=== PATIENT | female | born 1985 | race Caucasian/White ===

== ENCOUNTER 2022-09-29 13:15 | Outpatient (CLI) | payer OTHER, SELFPAY | END 2022-09-29 13:16 | disposition home or self-care (01) | PROVIDERS: Visit Provider Emergency Medicine | DX: Z00.00 Encounter for general adult medical examination without abnormal findings (principal); Z13.6 Encounter for screening for cardiovascular disorders; Z13.1 Encounter for screening for diabetes mellitus | CPT/HCPCS: 80061; 82728; 82947 ==

== ENCOUNTER 2022-10-28 14:14 | Outpatient (CLI) | payer OTHER, SELFPAY | END 2022-10-28 14:15 | disposition home or self-care (01) | LOC: NFLDREF 14:14 | PROVIDERS: Visit Provider Obstetrics & Gynecology | DX: E78.1 Pure hyperglyceridemia (principal); D64.9 Anemia, unspecified | CPT/HCPCS: 84443 ==

== ENCOUNTER 2022-11-14 14:55 | Outpatient (CLI) | payer OTHER, SELFPAY ==
--- NOTE | 2022-11-14 15:00 | CRLHL7_ITS ---
For Patients: As a result of the Century Cures Act, medical imaging exams and procedure reports are released immediately into your electronic medical record. You may view this report before your referring provider. If you have questions, please contact your health care provider. INDICATION: 37 year-old female. Menorrhagia. TECHNIQUE: Transabdominal and transvaginal pelvic ultrasound. FINDINGS: The uterus measures 9.5 x 4.7 x 5.8 cm. The endometrial stripe measures 15 mm transvaginally. This is thickened and heterogeneous in appearance even in a premenopausal female. The right ovary measures 3.9 x 1.7 x 2.7 cm. The left ovary measures 2.7 x 1.6 x 2.0 cm. Blood flow is identified in the ovaries. Minimal free pelvic fluid likely physiologic. IMPRESSION: 1. Thickened somewhat heterogeneous endometrial stripe measuring up to 15 mm. 2. Small cervical nabothian cysts. 3. Minimal free pelvic fluid likely physiologic. 4. Normal-sized ovaries without torsion or mass. Dictated by Fidencio Vitale MD @ 11/14/2022 3:48:26 PM (Electronically Signed)
== END 2022-11-14 14:56 | disposition home or self-care (01) ==
LOC: US 14:56
PROVIDERS: Visit Provider Obstetrics & Gynecology
DX: N92.1 Excessive and frequent menstruation with irregular cycle (principal); R93.89 Abnormal findings on diagnostic imaging of other specified body structures; N88.8 Other specified noninflammatory disorders of cervix uteri
CPT/HCPCS: 76830; 76856

== ENCOUNTER 2023-10-10 15:33 | Outpatient (CLI) | payer OTHER, SELFPAY ==
--- OUTSIDE RECORDS SUMMARY | 2023-10-10 15:36 | XMS_ITS | Referral Summary ---
Author Organization [place] Address [address] [place] [address] Care Team Providers Care Clinic Lpn Name Role Phone Yuko Peters PA-C Unavailable Margaret Hamm Primary Care Provider Yuko Peters PA-C Unavailable Allergies Active Allergy Reactions Criticality Noted Date Comments No Known Drug Allergy 10/22/2003 Seasonal Allergies 04/01/2009 Pollen and hay Medications Medication Sig Dispensed Refills Start Date End Date Status BENADRYL ALLERGY 12.5 MG OR CHEW 1 tab qd prn 10/22/2003 Active AD OR None Entered Active clomiPHENE (CLOMID) 50 MG tabletIndications:F emale infertility Take 3 tablets (150 mg) by mouth daily 15 tablet 3 12/18/2015 Active Additional Information Patient not taking.Reported on 01/13/2023 DEXAMETHASONE PO Active Active Problems Problem Noted Date Diagnosed Date Female infertility 01/12/2015 GBS (group B Streptococcus c arrier), +RV culture, currently 02/04/2014 Encounter for supervision of other normal pregna ncy 01/14/2014 Overview: Boy Diagnosis updated by automated process. Provider to review and confirm. Mild hyperemesis gravidarum, antepartum 01/19/20 11 CARDIOVASCULAR SCREENING; LDL GOAL LESS THAN 160 02/21/2010 Resolved Problems Problem Noted Date Diagnosed Date Resolved Date Mixed incontinence 01/31/2023 3 GBS (group B Streptococcus c arrier), +RV culture, currently 08/02/2011 02/04/2014 Overview: Intrapartum antibiotics. Supervision of normal first 01/18/2011 02/17/2014 Overview: Boy History of miscarriage 07/06/201002/17 Immunizations Name Administration Dates Next Due HEPA 12/13/2004,01/15/2004 HepB 03/17/2000,10/29/1999,09/23/1999 Influenza (IIV3) PF 01/18/2011 MMR 09/23/1999 TD,PF 7+ (Tenivac) 09/23/1999 TDAP Vaccine (Adacel) 04/01/2009 Typhoid IM 01/15/2004 Social History Tobacco Use Types Packs/Day Years Used Date Smoking Tobacco: Never Smokeless Tobacco: Never Alcohol Use Standard Drinks/Week Comments No 0 (1 standard drink = 0.6 oz pur e alcohol) Adolescent Education Answer Date Record ed Getting School Help Needed Not on file 01/14 Sex and Gender Information Value Date Recorded Sex Assigned at Not on file Gender Identity Not on file Sexual Orientation Not on file Last Filed Vital Signs Vital Sign Reading Time Taken Comments Blood Pressure 112/76 01/13/2023 2:10 PM CDT Pulse 83 09/22/2016 8:55 PM CDT Temperature 36.2 ??C (97.1 ??F) 09/22/2016 8:55 PM CD T Respiratory Rate 20 09/22/2016 8:55 PM CDT Oxygen Saturation 100% 09/22/2016 8:55 PM CDT Inhaled Oxygen Concentration - - Weight 65.8 kg (145 lb) 01/13/2023 2:10 PM CDT Height 160 cm (5' 3) 01/13/2023 2:10 PM CDT Body Mass Index 25.69 01/13/2023 2:10 PM CDT Plan of Treatment Not on file Procedures Procedure Name Priority Date/Time Associated Diagnosis Comments COMPREHENSIVE METABOLIC PANEL Routine 09/07/2015 1:24 PM CDT Encounter for gynecological examination with abnormal finding Female infertility HIV ANTIGEN ANTIBODY COMBO Routine 09/03/2013 4:33 PM CDT Supervision of other normal , first trimester PAP IMAGED THIN LAYER SCREEN Routine 09/03/2013 12:00 AM CDT Supervision of other normal , first trimester from Last 3 Months or Most Recently Relevant to Health Maintenance Results * Comprehensive metabolic panel (09/07/2015 1:24 PM CDT) Sodium 138 133 - 144 mmol/L [facility] Potassium 3.7 3.4 - 5.3 mmol/L [facility] Chloride 106 94 - 109 mmol/L [facility] Carbon Dioxide 24 20 - 32 mmol/L [facility] Anion Gap 8 3 - 14 mmol/L [facility] Glucose 74 70 - 99 mg/dL [facility] Urea Nitrogen 10 7 - 30 mg/dL [facility] Creatinine 0.80 0.52 - 1.04 mg/dL [facility] GFR Estimate 85 >60 mL/min/1. 7m2 [facility] Comment:Non GFR Calc GFR Estimate If Black >90 GFR Calc >60 mL/min/1. 7m2 [facility] Calcium 8.8 8.5 - 10.1 mg/dL [facility] Bilirubin Total 0.2 0.2 - 1.3 mg/dL [facility] Albumin 3.4 3.4 - 5.0 g/dL [facility] Protein Total 7.5 6.8 - 8.8 g/dL [facility] Alkaline Phosphatase 96 40 - 150 U/L [facility] ALT 20 0 - 50 U/L [facility] AST 13 0 - 45 U/L [facility] Blood specimen (specimen) 09/07/2015 1:24 PM CDT 09/07/2015 1:25 PM CDT Windy Boston MD LAB - BLOOD ROXANA HARRIS [facility] Organization Address City/State/ZIP Co de Phone Number [facility] [address] [place] [address] * HIV Antigen Antibody Combo (09/03/2013 4:33 PM CDT) HIV Antigen Antibody Combo Nonreactive HIV-1 p24 Ag & HIV-1/HIV-2 Ab Not Detected NR [facility] Blood specimen (specimen) 09/03/2013 4:33 PM CDT 09/03/2013 4:34 PM CDT Windy Boston MD LAB - BLOOD ROXANA HARRIS [facility] * PAP imaged thin layer screen (09/03/2013 12:00 AM CDT) PAP NIL SHREE Grubbs Report Patient Name: CORAZON BERNABE MR#: [id number] Specimen #: [id number] Collected: 09/03/2013 Received: 09/04/2013 Reported: 09/05/2013 13:52 Ordering Phy(s): WINDY BOSTON SPECIMEN/STAIN PROCESS: Pap imaged thin layer prep screening (Surepath, FocalPoint with guided screening) ? Pap-Cyto x 1, Reflex HPV if NIL/ASCUS/LSIL x 1 SOURCE: Cervical, endocervical Pap imaged thin layer prep screening (Surepath, FocalPoint with guided screening) SPECIMEN ADEQUACY: Satisfactory for evaluation. -Transformation zone component absent. CYTOLOGIC INTERPRETATION: Negative for Intraepithelial Lesion or Malignancy Electronically signed out by: JERICA Kyle (ASCP) Processed and screened at [facility] CLINICAL HISTORY: LMP: 04/25/2013 , Previous normal pap Date of Last Pap: 02/24/2012, Papanicolaou Test Limitations: ??Cervical cytology is a screening test with limited sensitivity; regular screening is critical for cancer prevention; Pap tests are primarily effective for the diagnosis/preventi on of squamous cell carcinoma, not adenocarcinomas or other cancers. TESTING LAB LOCATION: [facility], [facility] [address] [place], [place] ??[id number] COLLECTION SITE: Client: ??[facility] Location: [facility] (B) COPATH Cytologic material (specimen) 09/03/2013 09/04/2013 10:29 AM CDT Windy Boston MD LAB - OPTIME CLI NICAL SPECIMEN COPATH from Last 3 Months or Most Recently Relevant to Health Maintenance Advance Directives For more information, please contact: [phone] * No Code Status (Latest Code Status on File) Date Activated Date Inactivated Comments 10/22/2003 8:34 AM 10/22/2003 8:34 AM Care Teams Clinic Lpn Relationship Specialty Start Date End Date Margaret Hamm [facility] [address] [place] [address] PCP - General analytical lab analyst 01/13/23 Yuko Peters PA-C [address] [address] Physician Logistics Associate Urology 11/02/22 Yuko Peters PA-C [address] [facility] [address] [place] [address] Assigned Surgical Provider 01/14/23
--- OUTSIDE RECORDS SUMMARY | 2023-10-10 15:36 | XMS_ITS | Clinical Summary ---
Author Organization [place] Address [address] [facility] [place] [address] Care Team Providers Care Manager Supply Name Role Phone Yuko Peters PA-C Unavailable Margaret Hamm Primary Care Provider [phone] Yuko Peters PA-C Unavailable [phone] Allergies Active Allergy Reactions Criticality Noted Date [...] TDAP Vaccine (Adacel) 04/01/2009 Typhoid IM 01/15/2004 Family History Medical History Relation Comments Skin Cancer Father Breast Cancer Maternal Aunt Skin Cancer Mother Relation Status Comments Brother 1 Alive Brother 2 Alive Father Alive Maternal Aunt Maternal Grandfather Alive Maternal Grandmother Alive Mother Alive Other Alive Paternal Grandfather Alive Paternal Grandmother Alive Social History Tobacco Use Types Packs/Day Years [...] 01/13/2023 2:10 PM CDT Plan of Treatment Health Maintenance Due Date Last Done Comments ADVANCE CARE PLANNING 1987 ANNUAL REVIEW OF HM ORDERS 1987 IPV IMMUNIZATION (3 of 3 - 4-dose series) 1991 1987, 1987 HEPATITIS C SCREENING 06/22/2005 PAP 09/03/2016 09/03/2013, 08/22, 02/24/2012, Additional history exists YEARLY PREVENTIVE VISIT 09/06/2016 09/07/19 16, 02/24/2012, 07/06/2010, Additional history exists GLUCOSE 09/06/2018 09/07/2015, 07/06/2010 COVID-19 Vaccine ( season) 2022 PHQ-2 (once per calendar year) 2023 09/07/2015 INFLUENZA VACCINE (Season Ended) 2023 01/18/2011, 01/18/2011 DTAP/TDAP/TD IMMUNIZATION (9 - Td or Tdap) 05/24/2029 05/24/2019, 06/02/2017, 03/02/2014, Additional history exists HEPATITIS B IMMUNIZATION Completed 000, 03/17/2000, 10/29/1999, Additional history exists HIV SCREENING Completed 09/03/2013, 01/18/2011 HPV IMMUNIZATION Aged Out No longer e ligible based on patient's age to complete this topic MENINGITIS IMMUNIZATION Aged Out No l onger eligible based on patient's age to complete this topic Pneumococcal Vaccine: Pediatrics (0 to 5 Years) and At-Risk Patients (6 to 64 Years) Aged Out No longer eligible based on patient's age to complete this topic RSV MONOCLONAL ANTIBODY Aged Out No l onger eligible based on patient's age to complete this topic Procedures Procedure Name Priority Date/Time Associated Diagnosis [...] CDT) Sodium 138 133 - 144 mmol/L [facility] Potassium 3.7 3.4 - 5.3 mmol/L [facility] Chloride 106 94 - 109 mmol/L [facility] Carbon Dioxide 24 20 - 32 mmol/L [facility] Anion Gap 8 3 - 14 mmol/L [facility] Glucose 74 70 - 99 mg/dL [facility] Urea Nitrogen 10 7 - 30 mg/dL [facility] Creatinine 0.80 0.52 - 1.04 mg/dL [facility] GFR Estimate 85 >60 mL/min/1. 7m2 [facility] Comment:Non GFR Calc GFR Estimate If Black >90 GFR Calc >60 mL/min/1. 7m2 [facility] Calcium 8.8 8.5 - 10.1 mg/dL [facility] Bilirubin Total 0.2 0.2 - 1.3 mg/dL [facility] Albumin 3.4 3.4 - 5.0 g/dL [facility] Protein Total 7.5 6.8 - 8.8 g/dL [facility] Alkaline Phosphatase 96 40 - 150 U/L [facility] ALT 20 0 - 50 U/L [facility] AST 13 0 - 45 U/L [facility] Blood specimen (specimen) 09/07/2015 1:24 PM CDT 09/07/2015 1:25 PM CDT Windy Boston MD LAB - BLOOD ROXANA HARRIS [facility] [address] [place] [address] * HIV Antigen Antibody Combo (09/03/2013 4:33 PM CDT) HIV Antigen Antibody Combo Nonreactive HIV-1 p24 Ag & HIV-1/HIV-2 Ab Not Detected NR [facility] Blood specimen (specimen) 09/03/2013 4:33 PM CDT 09/03/2013 4:34 PM CDT Windy Boston MD LAB - BLOOD ROXANA HARRIS [facility] * PAP imaged thin layer screen (09/03/2013 12:00 AM CDT) PAP NIL COPATH Copath Report Patient Name: CORAZON BERNABE MR#: [id number] Specimen #: [id number] Collected: 09/03/2013 Received: 09/04/2013 Reported: 09/05/2013 13:52 [...] JERICA Kyle (ASCP) Processed and screened at [facility] CLINICAL HISTORY: LMP: 04/25/2013 , Previous normal pap Date of Last Pap: 02/24/2012, Papanicolaou Test Limitations: ??Cervical cytology is a screening test with limited sensitivity; regular screening is critical for cancer prevention; Pap tests are primarily effective for the diagnosis/preventi on of squamous cell carcinoma, not adenocarcinomas or other cancers. TESTING LAB LOCATION: [facility], [address] ??[phone] COLLECTION SITE: Client: ??[facility] Location: [facility] (B) COPATH Cytologic material (specimen) 09/03/2013 09/04/2013 10:29 AM CDT Windy Boston MD LAB - OPTIME CLI NICAL SPECIMEN COPATH from Last 3 Months or Most Recently Relevant to Health Maintenance Advance Directives For more information, please contact: [phone] * No Code Status (Latest Code Status on File) Date Activated Date Inactivated Comments 10/22/2003 8:34 AM 10/22/2003 8:34 AM Care Teams Manager Supply Relationship Specialty Start Date End Date Margaret Hamm [facility] [address] [place] [address] PCP - General autistic teacher 01/13/23 Yuko Peters PA-C [address] [facility] [address] [place], [place] [address] Physician Cnp Urology 11/02/22 Yuko Peters PA-C [address] [facility] [address] [place] [address] Assigned Surgical Provider 01/14/23
--- OUTSIDE RECORDS SUMMARY | 2023-10-10 15:36 | XMS_ITS | Encounter Summary ---
Author Organization [place] Address [address] [facility] [place] [address] Care Team Providers Care Salon/Spa Manager Name Role Phone Angel LuisranjithAnnmarie wesley APRN [facility] Primary Care Provid er [facility] Primary Care Provider Clayton Robledo MD Primary Care Provider Unav ailable Yuko Peters PA-C Unavailable Margaret Hamm Primary Care Provider Yuko Peters PA-C Unavailable Reason for Visit * Reason Onset Date Comments Refill Request 04/20/2011 Ondansetron ODT 4 gm tablets Encounter Details Date Type Department Care Team (Late st Contact Info) Description 04/20/2011 Refill [facility] [address] [facility] [place] [address] [place] [address] [facility] [place] [address] Refill Request (Ondansetron ODT 4 gm tablets) Social History Tobacco Use Types Packs/Day Years Used Date Smoking Tobacco: Never Alcohol Use Standard Drinks/Week Comments No 0 (1 standard drink = 0.6 oz pur e alcohol) Comments Yes Sex and Gender Information Value Date Recorded Sex Assigned at Not on file Gender Identity Not on file Sexual Orientation Not on file documented as of this encounter Miscellaneous Notes * Telephone Encounter - Josselin Waite - 04/20/2011 3:02 PM CST Triage unable to refill per protocol. Please advise. Thank you. WORKER * Telephone Encounter - Kita Montenegro - 04/20/2011 2:50 PM CST Pending Prescriptions: Disp Refills ondansetron (ZOFRAN-ODT) 4 MG [id number] Sig: Take 1 tablet by mouth every 8 hours as needed for nausea. Last filled- 04/04/2011 Kita Montenegro MA WORKER documented in this encounter Plan of Treatment Not on file documented as of this encounter Visit Diagnoses Diagnosis Supervision of normal first Mild hyperemesis gravidarum, antepartum documented in this encounter Care Teams Salon/Spa Manager Relationship Specialty Start Date End Date Annmarie Weeks APRN CNP [address] [place] [address] PCP - General 10/28/02 08/18/13 [place] [facility] [address] [place] [address] PCP - General 08/19/13 02/02/15 [place] [address] [place] [address] PCP - General consulting services project manager 02/03/15 11/01/22 Margaret Hamm [address] [address] PCP - General consulting services project manager 01/13/23 Yuko Peters PA-C [address] [facility] [address] [place] [address] Physician Core Analysis Operator Urology 11/02/22 Yuko Peters PA-C [address] [facility] [address] [place] [address] Assigned Surgical Provider 01/14/23 documented as of this encounter
== END 2023-10-10 15:34 | disposition home or self-care (01) ==
PROVIDERS: PCP Emergency Medicine; Visit Provider Emergency Medicine
DX: E78.1 Pure hyperglyceridemia (principal); N92.1 Excessive and frequent menstruation with irregular cycle; Z13.29 Encounter for screening for other suspected endocrine disorder
CPT/HCPCS: 80061; 82728; 84443

== ENCOUNTER 2023-10-12 14:21 | Outpatient (CLI) | payer OTHER, SELFPAY ==
--- OUTSIDE RECORDS SUMMARY | 2023-10-12 14:24 | XMS_ITS | Encounter Summary ---
Author Organization [place] Address [address] [facility] [place] [address] Care Team Providers Care Digital Experience Manager Name Role Phone Angel LuisranjithAnnmarie wesley APRN [facility] Primary Care Provid er [facility] Primary Care Provider Clayton Robledo MD Primary Care Provider Unav ailable Yuko Peters PA-C Unavailable Margaret Hamm Primary Care Provider Yuko Peters PA-C Unavailable Reason for Visit * Reason Onset Date Comments Refill Request 04/20/2011 Ondansetron ODT 4 gm tablets Encounter Details Date Type Department Care Team (Late st Contact Info) Description 04/20/2011 Refill [facility] [address] [facility] [place] [address] [place] [address] [facility] [place] [address] Refill Request (Ondansetron ODT [...] refill per protocol. Please advise. Thank you. STANT PASTRY CHEF * Telephone Encounter - Kita Montenegro - 04/20/2011 2:50 PM CST Pending Prescriptions: Disp Refills ondansetron (ZOFRAN-ODT) 4 MG [id number] Sig: Take 1 tablet by mouth every 8 hours as needed for nausea. Last filled- 04/04/2011 Kiat Montenegro MA STANT PASTRY CHEF documented in this encounter Plan of Treatment Not on file documented as of this encounter Visit Diagnoses Diagnosis Supervision of normal first Mild hyperemesis gravidarum, antepartum documented in this encounter Care Teams Digital Experience Manager Relationship Specialty Start Date End Date Annmarie eWeks APRN CNP [address] [place] [address] PCP - General 10/28/02 08/18/13 [place] [facility] [address] [place] [address] PCP - General 08/19/13 02/02/15 [place] [address] [place] [address] PCP - General vegetable farmworker 02/03/15 11/01/22 Margaret Hamm [address] [address] PCP - General vegetable farmworker 01/13/23 Yuko Peters PA-C [address] [facility] [address] [place] [address] Physician Residential Assistant Urology 11/02/22 Yuko Peters PA-C [address] [facility] [address] [place] [address] Assigned Surgical Provider 01/14/23 documented as of this encounter
--- OUTSIDE RECORDS SUMMARY | 2023-10-12 14:24 | XMS_ITS | Clinical Summary ---
Author Organization [place] Address [address] [facility] [place] [address] Care Team Providers Care Senior Manufacturing Technician Name Role Phone Yuko Peters PA-C Unavailable [phone] Margaret Hamm Primary Care Provider Yuko Peters [...] 138 133 - 144 mmol/L [facility] Potassium 3.7 3.4 - 5.3 mmol/L [facility] Chloride 106 94 - 109 mmol/L [facility] Carbon Dioxide 24 20 - 32 mmol/L [facility] Anion Gap 8 3 - 14 mmol/L [facility] Glucose 74 70 - 99 mg/dL [facility] Urea Nitrogen 10 7 - 30 mg/dL [facility] Creatinine 0.80 0.52 - 1.04 mg/dL [facility] GFR Estimate 85 >60 mL/min/1. 7m2 [facility] Comment:Non GFR Calc GFR Estimate If Black >90 GFR Calc >60 mL/min/1. 7m2 [facility] Calcium 8.8 8.5 - 10.1 mg/dL [facility] Bilirubin Total 0.2 0.2 - 1.3 mg/dL [facility] Albumin 3.4 3.4 - 5.0 g/dL [facility] Protein Total 7.5 6.8 - 8.8 g/dL [facility] Alkaline Phosphatase 96 40 - 150 U/L [facility] ALT 20 0 - 50 U/L [facility] AST 13 0 - 45 U/L [facility] Blood specimen (specimen) 09/07/2015 1:24 PM CDT 09/07/2015 1:25 PM CDT Windy Boston MD LAB - BLOOD ROXANA HARRIS [facility] [address] [place] [address] * HIV Antigen Antibody Combo (09/03/2013 4:33 PM CDT) HIV Antigen Antibody Combo Nonreactive HIV-1 p24 Ag & HIV-1/HIV-2 Ab Not Detected NR [facility] Blood specimen (specimen) 09/03/2013 4:33 PM CDT 09/03/2013 4:34 PM CDT Windy Boston MD LAB - BLOOD ROXANA HARRIS [facility] * PAP imaged thin layer screen (09/03/2013 12:00 AM CDT) PAP NIL COPATH Copath Report Patient Name: CORAZON BERNABE MR#: [id number] Specimen #: [id number] Collected: 09/03/2013 Received: 09/04/2013 Reported: 09/05/2013 13:52 [...] JERICA Kyle (ASCP) Processed and screened at [facility] CLINICAL HISTORY: LMP: 04/25/2013 , Previous normal pap Date of Last Pap: 02/24/2012, Papanicolaou Test Limitations: ??Cervical cytology is a screening test with limited sensitivity; regular screening is critical for cancer prevention; Pap tests are primarily effective for the diagnosis/preventi on of squamous cell carcinoma, not adenocarcinomas or other cancers. TESTING LAB LOCATION: [facility], [address] ??[phone] COLLECTION SITE: Client: ??[facility] Location: [facility] (B) COPATH Cytologic material (specimen) 09/03/2013 09/04/2013 10:29 AM CDT Windy Boston MD LAB - OPTIME CLI NICAL SPECIMEN COPATH from Last 3 Months or Most Recently Relevant to Health Maintenance Advance Directives For more information, please contact: [phone] * No Code Status (Latest Code Status on File) Date Activated Date Inactivated Comments 10/22/2003 8:34 AM 10/22/2003 8:34 AM Care Teams Senior Manufacturing Technician Relationship Specialty Start Date End Date Margaret Hamm [facility] [address] [place] [address] PCP - General architecture department chair 01/13/23 Yuko Peters PA-C [address] [facility] [address] [place], [place] [address] Physician Doughnut Icer Machine Urology 11/02/22 Yuko Peters PA-C [address] [facility] [address] [place] [address] Assigned Surgical Provider 01/14/23
--- OUTSIDE RECORDS SUMMARY | 2023-10-12 14:24 | XMS_ITS | Referral Summary ---
Author Organization [place] Address [address] [facility] [place] [address] Care Team Providers Care Cyber Systems Engineer Name Role Phone Yuko Peters PA-C Unavailable [...] CDT) Sodium 138 133 - 144 mmol/L [facility] Potassium 3.7 3.4 - 5.3 mmol/L [facility] Chloride 106 94 - 109 mmol/L [facility] Carbon Dioxide 24 20 - 32 mmol/L [facility] Anion Gap 8 3 - 14 mmol/L [facility] Glucose 74 70 - 99 mg/dL [facility] Urea Nitrogen 10 7 - 30 mg/dL [facility] Creatinine 0.80 0.52 - 1.04 mg/dL [facility] GFR Estimate 85 >60 mL/min/1. 7m2 [facility] Comment:Non GFR Calc GFR Estimate If Black >90 GFR Calc >60 mL/min/1. 7m2 [facility] Calcium 8.8 8.5 - 10.1 mg/dL [facility] Bilirubin Total 0.2 0.2 - 1.3 mg/dL [facility] Albumin 3.4 3.4 - 5.0 g/dL [facility] Protein Total 7.5 6.8 - 8.8 g/dL [facility] Alkaline Phosphatase 96 40 - 150 U/L [facility] ALT 20 0 - 50 U/L [facility] AST 13 0 - 45 U/L [facility] Blood specimen (specimen) 09/07/2015 1:24 PM CDT 09/07/2015 1:25 PM CDT Windy Boston MD LAB - BLOOD ROXANA HARRIS [facility] Organization Address City/State/ZIP Co de Phone Number [facility] [address] [place] [address] * HIV Antigen Antibody Combo (09/03/2013 4:33 PM CDT) HIV Antigen Antibody Combo Nonreactive HIV-1 p24 Ag & HIV-1/HIV-2 Ab Not Detected NR [facility] Blood specimen (specimen) 09/03/2013 4:33 PM CDT 09/03/2013 4:34 PM CDT Windy Boston MD LAB - BLOOD ROXANA HARRIS [facility] * PAP imaged thin layer screen (09/03/2013 12:00 AM CDT) PAP NIL SHREE Grubbs Report Patient Name: CORAZON BERNABE MR#: [id number] Specimen #: [id number] Collected: 09/03/2013 Received: 09/04/2013 Reported: 09/05/2013 13:52 [...] Processed and screened at [facility] CLINICAL HISTORY: LMP: 04/25/2013 , Previous normal pap Date of Last Pap: 02/24/2012, Papanicolaou Test Limitations: ??Cervical cytology is a screening test with limited sensitivity; regular screening is critical for cancer prevention; Pap tests are primarily effective for the diagnosis/preventi on of squamous cell carcinoma, not adenocarcinomas or other cancers. TESTING LAB LOCATION: [facility], [facility] [address] [place], [place] ??[id number] COLLECTION SITE: Client: ??[facility] Location: [facility] (B) COPATH Cytologic material (specimen) 09/03/2013 09/04/2013 10:29 AM CDT Windy Boston MD LAB - OPTIME CLI NICAL SPECIMEN COPATH from Last 3 Months or Most Recently Relevant to Health Maintenance Advance Directives For more information, please contact: [phone] * No Code Status (Latest Code Status on File) Date Activated Date Inactivated Comments 10/22/2003 8:34 AM 10/22/2003 8:34 AM Care Teams Cyber Systems Engineer Relationship Specialty Start Date End Date Margaret Hamm [facility] [address] [place] [address] PCP - General elementary school science teacher 01/13/23 Yuko Peters PA-C [address] [address] Physician Oil Burner Journeyman Urology 11/02/22 Yuko Peters PA-C [address] [facility] [address] [place] [address] Assigned Surgical Provider 01/14/23
== END 2023-10-12 14:22 | disposition home or self-care (01) ==
LOC: NFLDREF 14:23
PROVIDERS: PCP Emergency Medicine; Visit Provider Obstetrics & Gynecology
DX: N39.3 Stress incontinence (female) (male) (principal)
CPT/HCPCS: 87086

== ENCOUNTER 2023-12-18 15:59 | Emergency (ER) | payer OTHER, SELFPAY ==
[2023-12-18 16:01] VITALS: BP 126/88; PULSE 102; RESP 16; TEMP 37.4; O2SAT 99; BMI 26.6
--- OUTSIDE RECORDS SUMMARY | 2023-12-18 16:22 | XMS_ITS | Clinical Summary ---
Author Organization [place] Address [address] [facility] [place] [address] Care Team Providers Care Counter Pocket Sewer Name Role Phone Yuko Peters PA-C Unavailable [...] per calendar year) 2023 09/07/2015 INFLUENZA VACCINE (#1) 2023 01/18/2011, 2010 DTAP/TDAP/TD IMMUNIZATION (9 - Td or Tdap) [...] CDT) Sodium 138 133 - 144 mmol/L [facility] [place] [place] Potassium 3.7 3.4 - 5.3 mmol/L [facility] [place] [place] Chloride 106 94 - 109 mmol/L [facility] [place] [place] Carbon Dioxide 24 20 - 32 mmol/L [facility] [place] [place] Anion Gap 8 3 - 14 mmol/L [facility] [place] [place] Glucose 74 70 - 99 mg/dL [facility] [place] [place] Urea Nitrogen 10 7 - 30 mg/dL [facility] [place] [place] Creatinine 0.80 0.52 - 1.04 mg/dL [facility] [place] [place] GFR Estimate 85 >60 mL/min/1. 7m2 [facility] [place] [place] Comment:Non GFR Calc GFR Estimate If Black >90 GFR Calc >60 mL/min/1. 7m2 [facility] [place] [place] Calcium 8.8 8.5 - 10.1 mg/dL [facility] [place] [place] Bilirubin Total 0.2 0.2 - 1.3 mg/dL [facility] [place] [place] Albumin 3.4 3.4 - 5.0 g/dL [facility] [place] [place] Protein Total 7.5 6.8 - 8.8 g/dL [facility] [place] [place] Alkaline Phosphatase 96 40 - 150 U/L [facility] [place] [place] ALT 20 0 - 50 U/L [facility] [place] [place] AST 13 0 - 45 U/L [facility] [place] [place] Blood specimen (specimen) 09/07/2015 1:24 PM CDT 09/07/2015 1:25 PM CDT Windy Boston MD LAB - BLOOD ROXANA HARRIS [facility] [place] [place] [address] [place] [address] * HIV Antigen Antibody Combo (09/03/2013 4:33 PM CDT) HIV Antigen Antibody Combo Nonreactive HIV-1 p24 Ag & HIV-1/HIV-2 Ab Not Detected NR [facility] Blood specimen (specimen) 09/03/2013 4:33 PM CDT 09/03/2013 4:34 PM CDT Windy Boston MD LAB - BLOOD ROXANA HARRIS [facility] * PAP imaged thin layer screen (09/03/2013 12:00 AM CDT) PAP NIL COPATH Copath Report Patient Name: CORAZON BERNABE MR#: [id number] Specimen #: [id number] Collected: 09/03/2013 Received: 09/04/2013 Reported: 09/05/2013 13:52 [...] JERICA Kyle (ASCP) Processed and screened at [facility] CLINICAL HISTORY: LMP: 04/25/2013 , Previous normal pap Date of Last Pap: 02/24/2012, Papanicolaou Test Limitations: ??Cervical cytology is a screening test with limited sensitivity; regular screening is critical for cancer prevention; Pap tests are primarily effective for the diagnosis/preventi on of squamous cell carcinoma, not adenocarcinomas or other cancers. TESTING LAB LOCATION: [facility], [address] ??[phone] COLLECTION SITE: Client: ??[facility] Location: [facility] (B) COPATH Cytologic material (specimen) 09/03/2013 09/04/2013 10:29 AM CDT Windy Boston MD LAB - OPTIME CLI NICAL SPECIMEN COPATH from Last 3 Months or Most Recently Relevant to Health Maintenance Advance Directives For more information, please contact: [phone] * No Code Status (Latest Code Status on File) Date Activated Date Inactivated Comments 10/22/2003 8:34 AM 10/22/2003 8:34 AM Care Teams Counter Pocket Sewer Relationship Specialty Start Date End Date Margaret Hamm [facility] [address] [place] [address] PCP - General pierce and shave press operator 01/13/23 Yuko Peters PA-C [address] [facility] [address] [place], [place] [address] Physician Computational Biologist Urology 11/02/22 Yuko Peters PA-C [address] [facility] [address] [place] [address] Assigned Surgical Provider 01/14/23
--- OUTSIDE RECORDS SUMMARY | 2023-12-18 16:22 | XMS_ITS | Encounter Summary ---
Author Organization [place] Address [address] [facility] [place] [address] Care Team Providers Care Motor Tune Up Specialist Name Role Phone Angel LuisranjithAnnmarie wesley APRN [facility] Primary Care Provid er [facility] Primary Care Provider Clayton Robledo MD Primary Care Provider Unav ailable Yuko Peters PA-C Unavailable [phone] Margaret Hamm Primary Care Provider Yuko Peters PA-C Unavailable Reason for Visit * Reason Onset Date Comments Refill Request 04/20/2011 Ondansetron ODT 4 gm tablets Encounter Details Date Type Department Care Team (Late st Contact Info) Description 04/20/2011 Refill [facility] [address] [facility] [place] [address] [place] [address] [facility] [place] [address] Refill Request (Ondansetron [...] refill per protocol. Please advise. Thank you. ALL AND REPAIR TECHNICIAN * Telephone Encounter - Kita Montenegro - 04/20/2011 2:50 PM CST Pending Prescriptions: Disp Refills ondansetron (ZOFRAN-ODT) 4 MG [id number] Sig: Take 1 tablet by mouth every 8 hours as needed for nausea. Last filled- 04/04/2011 Kita Montenegro MA ALL AND REPAIR TECHNICIAN documented in this encounter Plan of Treatment Not on file documented as of this encounter Visit Diagnoses Diagnosis Supervision of normal first Mild hyperemesis gravidarum, antepartum documented in this encounter Care Teams Motor Tune Up Specialist Relationship Specialty Start Date End Date Annmarie Weeks APRN CNP [address] [place] [address] PCP - General 10/28/02 08/18/[address] [facility] [address] [place] [address] PCP - General 08/19/13 02/02/15 [place] [address] [place] [address] PCP - General training and development coordinator 02/03/15 11/01/22 Margaret Hamm [address] [address] PCP - General training and development coordinator 01/13/23 Yuko Peters PA-C [address] [facility] [address] [place] [address] Physician Tree Pruner Urology 11/02/22 Yuko Peters PA-C [address] [facility] [address] [place] [address] Assigned Surgical Provider 01/14/23 documented as of this encounter
--- OUTSIDE RECORDS SUMMARY | 2023-12-18 16:22 | XMS_ITS | Referral Summary ---
Author Organization [place] Address [address] [facility] [place] [address] Care Team Providers Care Evening Sitter Name Role Phone Yuko Peters PA-C Unavailable [...] CDT) Sodium 138 133 - 144 mmol/L [facility] Potassium 3.7 3.4 - 5.3 mmol/L [facility] Chloride 106 94 - 109 mmol/L [facility] Carbon Dioxide 24 20 - 32 mmol/L [facility] Anion Gap 8 3 - 14 mmol/L [facility] Glucose 74 70 - 99 mg/dL [facility] Urea Nitrogen 10 7 - 30 mg/dL [facility] Creatinine 0.80 0.52 - 1.04 mg/dL [facility] GFR Estimate 85 >60 mL/min/1. 7m2 [facility] Comment:Non GFR Calc GFR Estimate If Black >90 GFR Calc >60 mL/min/1. 7m2 [facility] Calcium 8.8 8.5 - 10.1 mg/dL [facility] Bilirubin Total 0.2 0.2 - 1.3 mg/dL [facility] Albumin 3.4 3.4 - 5.0 g/dL [facility] Protein Total 7.5 6.8 - 8.8 g/dL [facility] Alkaline Phosphatase 96 40 - 150 U/L [facility] ALT 20 0 - 50 U/L [facility] AST 13 0 - 45 U/L [facility] Blood specimen (specimen) 09/07/2015 1:24 PM CDT 09/07/2015 1:25 PM CDT Windy Boston MD LAB - BLOOD ROXANA HARRIS [facility] Organization Address City/State/ZIP Co de Phone Number [facility] [address] [place] [address] * HIV Antigen Antibody Combo (09/03/2013 4:33 PM CDT) HIV Antigen Antibody Combo Nonreactive HIV-1 p24 Ag & HIV-1/HIV-2 Ab Not Detected NR [facility] Blood specimen (specimen) 09/03/2013 4:33 PM CDT 09/03/2013 4:34 PM CDT Windy Boston MD LAB - BLOOD ROXANA HARRIS [facility] * PAP imaged thin layer screen (09/03/2013 12:00 AM CDT) PAP NIL SHREE Grubbs Report Patient Name: CORAZON BERNABE MR#: [id number] Specimen #: [id number] Collected: 09/03/2013 Received: 09/04/2013 Reported: 09/05/2013 13:52 [...] JERICA Kyle (ASCP) Processed and screened at [facility] CLINICAL HISTORY: LMP: 04/25/2013 , Previous normal pap Date of Last Pap: 02/24/2012, Papanicolaou Test Limitations: ??Cervical cytology is a screening test with limited sensitivity; regular screening is critical for cancer prevention; Pap tests are primarily effective for the diagnosis/preventi on of squamous cell carcinoma, not adenocarcinomas or other cancers. TESTING LAB LOCATION: [facility], [facility] [address] [place], [place] ??[phone] COLLECTION SITE: Client: ??[facility] Location: [facility] (B) COPATH Cytologic material (specimen) 09/03/2013 09/04/2013 10:29 AM CDT Windy Boston MD LAB - OPTIME CLI NICAL SPECIMEN COPATH from Last 3 Months or Most Recently Relevant to Health Maintenance Advance Directives For more information, please contact: [phone] * No Code Status (Latest Code Status on File) Date Activated Date Inactivated Comments 10/22/2003 8:34 AM 10/22/2003 8:34 AM Care Teams Evening Sitter Relationship Specialty Start Date End Date Margaret Hamm [facility] [address] [place] [address] PCP - General orchestra leader 01/13/23 Yuko Peters PA-C [address] [address] Physician Computer Systems Support Specialist Urology 11/02/22 Yuko Peters PA-C [address] [facility] [address] [place] [address] Assigned Surgical Provider 01/14/23
[2023-12-18] MEDS: 0.9 % SODIUM CHLORIDE 1000 ml 1,000 ML IV (16:44)
[2023-12-18 17:06] LABS: Chloride* 105 mmol/L (96-114); Sodium* 138 mmol/L (135-149)
[2023-12-18 17:07] LABS: Potassium* 3.6 mmol/L (3.6-5.1)
[2023-12-18 17:09] LABS: Creatinine* 1.1 mg/dL (0.5-1.5); Est. Creatinine Clearance* 58.49; Estimated Glomerular Filt Rate 67 ml/min
[2023-12-18 17:10] LABS: Anion Gap 11 mEq/L (7-15); Blood Urea Nitrogen* 14 mg/dL (5-24); Calcium* 9.4 mg/dL (8.4-10.6); Carbon Dioxide* 22 mmol/L (20-32); Glucose* 91 mg/dL (60-115)
--- NOTE | 2023-12-18 17:33 | ED.GENADULT ---
HPI - General Adult General Chief complaint: Syncope/Fainted Stated complaint: Heat exhaustion Time Seen by Provider: 12/18/23 16:02 Source: patient Mode of arrival: ambulatory Limitations: no limitations History of Present Illness HPI narrative: 38-year-old female coming in today concerned about ?heat exhaustion?. Patient states that she was outside for several hours today putting strength on a soccer field. She began to feel lightheaded and call her to come get her. She was afraid she was going to pass out her called 911. EMS assessed drawn the field, gave her 500 mL of normal saline and told her she might have heat exhaustion and renal failure. Requested that she come to the ER to be evaluated. Upon arrival to the ER, patient's vitals stable and feeling better. She did not have a significantly elevated temperature on the field. She did not lose consciousness, become confused or agitated. Denies headache, , blurry vision, ringing in her ears or chest pain. Related Data Home Medications ?Medication ?Instructions ?Recorded ?Confirmed acetaminophen 500 mg tablet 500 mg PO Q6H PRN 09/29/22 10/12/23 (Tylenol Extra Strength) cetirizine 10 mg capsule (Zyrtec) 10 mg PO QDAY PRN 09/29/22 10/12/23 valacyclovir 1 gram tablet 1,000 mg PO Q12H PRN 10/10/23 10/12/23 (Valtrex) Allergies Allergy/AdvReac Type Severity Reaction Status Date / Time No Known Allergies Allergy Unknown Verified 12/18/23 16:07 Review of Systems Status of ROS: Reports: 10 or more systems reviewed and unremarkable except as noted in History and below [facility] Medical History Basal cell carcinoma, face ?C44.310 - Basal cell carcinoma of skin of unspecified parts of face (ICD-10) Screening for diabetes mellitus ?Z13.1 - Encounter for screening for diabetes mellitus (ICD-10) Rectocele ?N81.6 - Rectocele (ICD-10) Cholecystitis ?K81.9 - Cholecystitis, unspecified (ICD-10) Menometrorrhagia ?N92.1 - Excessive and frequent menstruation with irregular cycle (ICD-10) Hypertriglyceridemia ?E78.1 - Pure hyperglyceridemia (ICD-10) Rectal incontinence ?R15.9 - Full incontinence of feces (ICD-10) Urinary incontinence ?R32 - Unspecified urinary incontinence (ICD-10) Cystocoele History of vaginal delivery History of in vitro fertilization (2016) ?Z98.890 - Other specified postprocedural states (ICD-10) Fourth degree perineal laceration (07/25/19) ?O70.3 - Fourth degree perineal laceration during delivery (ICD-10) Anemia ?D64.9 - Anemia, unspecified (ICD-10) Surgical History H/O cosmetic surgery (~06/2021) ?Z98.890 - Other specified postprocedural states (ICD-10) H/O breast augmentation (~06/2021) ?Z98.82 - Breast implant status (ICD-10) History of cholecystectomy (03/30/21) ?Z90.49 - Acquired absence of other specified parts of digestive tract (ICD-10) Family History Family/Other Breast cancer Aunt Breast cancer Father High blood pressure High cholesterol Skin cancer Maternal Grandmother Breast cancer Paternal Grandmother No problems noted. Uncle High blood pressure Paternal Grandfather High cholesterol Aunt Diabetes Other Melanoma Social History Narrative: Cis-gender, heterosexual woman Relationship status: . Spouse/Partner: Javier (works for [employer]) Education: Some college Occupation: HR/Payroll Tobacco: Lifetime nonsmoker E-cigarettes: No Alcohol: No Illicit/recreational drugs:No Safety concerns at home or work: No Dietary restriction(s): none Exercise: Yes, running and weights 3-4 days per week for at least 30 minutes. 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 Nonsmoker. No alcohol or recreational drug use. No concerns with safety or abuse. What is your current living situation?: I presently have a place to live Problems where you live: no known problems In the past 12 months, utilities in danger of being shut off: no In past 12 months, lack of transportation kept you from medical appts, meetings, work, or getting things needed for daily living: no In the past 12 mos, have been you worried that your food would run out before you had money to buy more?: never true In the past 12 mos, the food you bought just didn't last and you didn't have money to buy more?: never true Smoking Status: Never smoker How often do you have a drink containing alcohol: never AUDIT-C Alcohol total score: 0 Non-prescribed substance use: denies use How often does anyone, including family, friends and others, physically hurt you: never How often does anyone, including family, friends and others, insult or talk down to you: never How often does anyone, including family, friends and others, threaten you with harm: never How often does anyone, including family, friends and others, scream or curse at you: never Little interest or pleasure in doing things: not at all Feeling down, depressed, or hopeless: not at all Exam Narrative: Exam Narrative: Well-nourished well-developed patient in no acute distress. Alert and oriented. Answers questions appropriately. Mood and affect are appropriate. Thoughts are goal oriented and rational. No tangential or magical thinking noted. Patient speaks in full sentences without needing to catch her breath. HEENT: Normocephalic atraumatic. Pupils are equally round reactive to light. Extraocular muscles are intact. Conjunctivae are moist without any icterus noted. Moist mucous membranes. Posterior pharynx is normal. Neck is soft. Cardiovascular: Heart is regular rate and rhythm S1 and S2 are present without any murmurs. Lungs: Clear to auscultation bilaterally no wheezes rhonchi or rales are appreciated. Patient takes deep breaths without any discomfort. Abdomen: Soft and nontender nondistended with normal bowel sounds. Extremities: Bilateral lower extremities are without edema. Skin: Well perfused without any obvious rashes. Patient does have a sunburn on her back. Const: Vital Signs, click to edit/add: Vital Signs - 24 hr 12/18/23 16:01 Temperature 99.4 F Pulse Rate [Pulse Oximeter] 102 H Respiratory Rate 16 Blood Pressure [Ri ght Upper Arm] 126/88 Pulse Oximetry 99 Oxygen Delivery Me thod Room Air Course Course ED Course: We discussed staying hydrated and resting in well ventilated spaces for the remainder of the day. However patient is slightly concerned about what EMS told her regarding renal failure and heat exhaustion. Because of this we did go ahead and check her electrolytes and renal function-all were normal. She received another L normal saline while she was here. And she had an EKG done which read by me, showed normal sinus rhythm with a pulse of 99. Patient was feeling better and was discharged home stable condition. Vital Signs Vital signs: Initial Vital Signs Temperature 99.4 F 12/18/23 16:01 Temperature Source Temporal Artery Scan 12/18/23 16:01 Pulse Rate 102 H 12/18/23 16:01 Pulse Rhythm Regular 12/18/23 16:01 Pulse Strength 3+ Normal 12/18/23 16:01 Respiratory Rate 16 12/18/23 16:01 Blood Pressure 126/88 12/18/23 16:01 Blood Pressure Mean 100 12/18/23 16:01 Blood Pressure Position Sitting 12/18/23 16:01 Pulse Oximetry 99 12/18/23 16:01 Oxygen Delivery Method Room Air 12/18/23 16:01 Vital Signs Temperature 99.4 F 12/18/23 16:01 Pulse Rate 102 H 12/18/23 16:01 Respiratory Rate 16 12/18/23 16:01 Blood Pressure 126/88 12/18/23 16:01 Pulse Oximetry 99 12/18/23 16:01 Oxygen Delivery Method Room Air 12/18/23 16:01 Temperature 99.4 F 12/18/23 16:01 Pulse Rate 102 H 12/18/23 16:01 Respiratory Rate 16 12/18/23 16:01 Blood Pressure 126/88 12/18/23 16:01 Pulse Oximetry 99 12/18/23 16:01 Oxygen Delivery Method Room Air 12/18/23 16:01 Medications Administered Medications: Discontinued Medications Generic Name Dose Route Start Last Admin Trade Name Freq PRN Reason Stop Dose Admin Sodium Chloride 1,000 mls @ 1,000 mls/hr 12/18/23 16:15 12/18/23 16:44 0.9 % Sodium Chloride 1000 Ml IV 12/18/23 17:14 1,000 mls/hr .Q1H LUIGI Administration Medical Decision Making MDM Narrative Medical decision making narrative: 38-year-old female feeling lightheaded dizzy after heat exposure. Treatment per above. Lab Data Lab results reviewed: Yes I reviewed the patient's lab results Labs: Lab Results 12/18/23 Range/Units 16:40 Sodium 138 (135-149) mmol/L Potassium 3.6 (3.6-5.1) mmol/L Chloride 105 (96-114) mmol/L Carbon Dioxide 22 (20-32) mmol/L Anion Gap 11 (7-15) mEq/L BUN 14 (5-24) mg/dL Creatinine 1.1 (0.5-1.5) mg/dL Estimated Creat Clear 58.49 Estimated GFR 67 ml/min Glucose 91 (60-115) mg/dL Calcium 9.4 (8.4-10.6) mg/dL ECG Data Attestation: I personally reviewed and interpreted this ECG as follows: Discharge Plan Discharge Clinical Impression: Heat effect Patient Disposition: Home, Self-Care Condition: Stable Additional Instructions: Your electrolytes and kidney function are normal. Your EKG which shows us your heart rhythm, is also normal. Get plenty of rest today and stay well hydrated. Avoid prolonged exposure to high heat. Prescriptions: No Action valacyclovir [Valtrex] 1 gram tablet 1,000 mg PO Q12H PRN Zyrtec 10 mg capsule 10 mg PO QDAY PRN acetaminophen [Tylenol Extra Strength] 500 mg tablet 500 mg PO Q6H PRN Follow Up/Referrals: Virgie Cruz MD [Primary Care Provider] - Stand Alone Forms: Bills Khakis Info Instructions
== END 2023-12-18 17:57 | disposition home or self-care (01) ==
PROVIDERS: Emergency Provider Family Medicine; PCP Emergency Medicine
DX: T67.9XXA Effect of heat and light, unspecified, initial encounter (principal)
CPT/HCPCS: 36415; 80048; 93005; 96360; 99284; J7030